=== PATIENT | female | born 1985 | race Caucasian/White ===

== ENCOUNTER 2016-11-18 13:26 | Emergency (ER) | payer SELFPAY ==
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
[2016-11-18 14:12] VITALS: BP 126/70
--- NOTE | 2016-11-18 15:28 | XRay Report ---
LEFT HUMERUS: History: AP and lateral views of the humerus demonstrate normal mineralization and contours for this patient's age. No destructive changes are noted and the adjacent soft tissues are normal. IMPRESSION: Normal left humerus.
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
== END 2016-11-18 21:45 | disposition left against medical advice (07) ==
LOC: ED 13:26
DX: M79.602 Pain in left arm (principal); Z53.21 Procedure and treatment not carried out due to patient leaving prior to being seen by health care provider